=== PATIENT | male | born 1985 | race Caucasian/White ===

== ENCOUNTER → 2020-12-19 09:35 | Outpatient (POV) | payer BC, SELFPAY | PROVIDERS: Visit Provider Dermatology | DX: Z00.00 Encounter for general adult medical examination without abnormal findings (principal) ==

== ENCOUNTER 2024-12-06 16:21 | Outpatient (CLI) | payer BC, SELFPAY ==
--- NOTE | 2024-12-06 16:25 | MR_ITS ---
PROCEDURE INFORMATION: Exam: MR Cervical Spine Without Contrast Exam date and time: 12/06/2024 5:21 PM Age: 39 years old Clinical indication: Radicular pain (radiculopathy); Location of radicular pain not specified; Additional info: RT hand pain/cervical radiculopathy TECHNIQUE: Imaging protocol: Magnetic resonance imaging of the cervical spine without contrast. COMPARISON: No relevant prior studies available. FINDINGS: Bones/joints: Near anatomic alignment. No fracture. No suspicious marrow signal. Spinal cord: No definite signal abnormality visualized. C2-C3: No significant disc bulge or herniation. No severe spinal canal stenosis. No significant neural foraminal narrowing. C3-C4: Patent spinal canal. There is minimal uncovertebral and facet joint osteophyte present with minimal right neural foraminal narrowing. C4-C5: Patent spinal canal. Minimally narrowed right neural foramen. C5-C6: There is subtle diffuse disc bulging present without stenosis of the spinal canal. Patent neural foramina. C6-C7: No significant disc bulge or herniation. No severe spinal canal stenosis. No significant neural foraminal narrowing. C7-T1: No significant disc bulge or herniation. No severe spinal canal stenosis. No significant neural foraminal narrowing. Soft tissues: Unremarkable. Vasculature: Expected flow voids in the vertebral arteries. IMPRESSION: Minimal degenerative changes without significant spinal canal stenosis, as described.
== END 2024-12-06 23:59 | disposition home or self-care (01) ==
LOC: RAD 16:21
PROVIDERS: PCP Family Medicine; Visit Provider Family Medicine
DX: M79.641 Pain in right hand (principal); M54.12 Radiculopathy, cervical region; R94.130 Abnormal response to nerve stimulation, unspecified
CPT/HCPCS: 72141

== ENCOUNTER 2025-01-03 09:08 | Outpatient (POV) | payer BC, SELFPAY ==
--- NOTE | 2025-01-03 09:11 | A.OFFVIS_ITS ---
HPI Data of Consult Patient: new to practice Consult date: 01/03/25 Requesting Physician: Peggy Simms APRN Primary Care Provider: Jluis Fernandes MD Consult Narrative Reason for consult: Arm numbness tingling, neck pain History of present illness: Mr. Venegas is a 39 year old male who presents today as a new patient. He is a referral from Dr. Fernandes's office. Today he rates his pain a 5 out of 10. Patient states that he has had longstanding neck pain that does go into his shoulders and was down primarily the right arm with numbness and tingling however has now progressed to both arms. Patient does state that he has his middle finger on his arm was causing significant pain that just would not get better. He states he has tried Tylenol and ibuprofen along with heat and ice and topicals with minimal changes. Patient states that he is very active and does do regular exercise and stretching on a daily basis and has for longer than 12 weeks. Patient denies any prior back surgery or injection history. Patient is prescribed temazepam from an outside provider. His Vipul has been reviewed and is appropriate. CC: Peggy Simms APRN [facility] Disclaimer: The information contained in this section may have been updated after the patient was seen, as this information can be updated by other users. Medical History Attention deficit disorder (ADD) in adult Family History (Updated 01/03/25 @ 09:28 by Brittney Good RN) Other Unknown family medical history Social History (Updated 01/03/25 @ 09:29 by Brittney Good RN) Smoking Status: Never smoker second hand exposure: No alcohol intake: never substance use type: other details: they do have CBD gummies; the legal ones; it will help him focus counseling given: No current occupational status: employed Travel in the last 8 weeks: None adopted: No caregiver/support person: No foster care: No household members: spouse housing: house lives independently: Yes marital status: number of children: 2 number of grandchildren: 0 education level: high school service: No current occupation: [employer] Hx Recent Travel: No sexually active: Yes caffeine: No physical activity: none working smoke detector in home: Yes fire extinguisher in home: Yes carbon monox detector in home: Yes firearms in home: No do you feel safe at home: Yes victim of physical abuse: No victim of emotional abuse: No victim of sexual abuse: No would you like helpful sources: No Review of Systems Review of Systems Review of systems:: pertinent systems reviewed and negative unless documented below Review of systems (narrative): Review of Systems: General: No recent weight changes, no fever, no sleep disturbances Respiratory: No cough, no shortness of air, no recurring pulmonary infections Cardiovascular/peripheral vascular: No chest pain, no palpitations, no edema, no shortness of breath Gastrointestinal: No new onset incontinence, normal bowel movements reported Genitourinary: No new onset incontinence Musculoskeletal: Neck pain, bilateral arm numbness tingling Psychiatric: [Normal mood/affect] Neurological: [Denies weakness in extremities], [denies balance issues] Meds Home Medications and Allergies Home Medications ?Medication ?Instructions ?Recorded ?Confirmed ?Type No Known Home Medications 01/17/23 01/03/25 History New Prescriptions to Start Prescriptions: Allergies Allergy/AdvReac Type Severity Reaction Status Date / Time No Known Allergies Allergy Verified 12/17/22 13:59 Objective Narrative: Physical Exam: General: Alert and oriented x3, no acute distress, pleasant and cooperative Lungs: Respirations even and unlabored, symmetrical chest expansion Eyes: PERRL Musculoskeletal: Flexion and extension of cervical [spine] somewhat guarded secondary to pain, positive Spurling's test Neurological: Speech clear, no gross sensory deficit Additional findings Additional findings: FINDINGS: Bones/joints: Near anatomic alignment. No fracture. No suspicious marrow signal. Spinal cord: No definite signal abnormality visualized. C2-C3: No significant disc bulge or herniation. No severe spinal canal stenosis. No significant neural foraminal narrowing. C3-C4: Patent spinal canal. There is minimal uncovertebral and facet joint osteophyte present with minimal right neural foraminal narrowing. C4-C5: Patent spinal canal. Minimally narrowed right neural foramen. C5-C6: There is subtle diffuse disc bulging present without stenosis of the spinal canal. Patent neural foramina. C6-C7: No significant disc bulge or herniation. No severe spinal canal stenosis. No significant neural foraminal narrowing. C7-T1: No significant disc bulge or herniation. No severe spinal canal stenosis. No significant neural foraminal narrowing. Soft tissues: Unremarkable. Vasculature: Expected flow voids in the vertebral arteries. IMPRESSION: Minimal degenerative changes without significant spinal canal stenosis, as described. Assessment and Plan *Assessment and plan (1) Degenerative disc disease, cervical: Status: Acute Category: Medical Code(s): M50.30 - Other cervical disc degeneration, unspecified cervical region (2) Cervical spondylosis: Status: Acute Category: Medical Code(s): M47.812 - Spondylosis without myelopathy or radiculopathy, cervical region (3) Cervical radiculopathy: Status: Acute Category: Medical Code(s): M54.12 - Radiculopathy, cervical region Plan Patient is experiencing worsening pain in their neck with radiating tingling and burning sensations into his bilateral upper extremities. Patient did have limited range of motion of his cervical spine with a positive Spurling's test. I did discuss with the patient that I do believe they would benefit from a cervical epidural steroid injection. Risk and benefits were discussed with patient and they would like to proceed forward with this plan of care. Patient has had an EMG test showing evidence of increased insertional activity involving the right biceps, right deltoid and right triceps involving the C5-C6, C6-C7 and 8 dermatome distributions. Patient has tried and failed conservative the rapy including oral medications, heat and ice, topicals, at home stretching exercise for longer than 12 weeks that was physician guided. Patient will be scheduled for a ERNESTO C5-C6 under fluoroscopy. Patient denies any blood thinners. I will also order the patient a compounded cream. Patient has been instructed to contact the clinic with any concerns before the next appointment. Dr. Galdamez has reviewed this note and agrees with this plan of care. This note was dictated using voice recognition software and make contain errors or omissions. All injections are used with Lidocaine, Bupivacaine and Depo Medrol. Occasionally urine drug screen is needed to verify patient's compliance with our office pain contract. This is ordered based off specific treatments related to chronic pain with the potential to abuse certain medications.
[2025-01-03 09:27] VITALS: BP 139/81; PULSE 71; RESP 18; O2SAT 97; BMI 25.1
== END 2025-01-03 23:59 | disposition home or self-care (01) ==
LOC: SC.PAIN 09:09
PROVIDERS: PCP Family Medicine; Visit Provider Nurse Practitioner Family
DX: M50.10 Cervical disc disorder with radiculopathy, unspecified cervical region (principal); M47.22 Other spondylosis with radiculopathy, cervical region
CPT/HCPCS: 99202; G0463

== ENCOUNTER 2025-02-01 10:46 | Day surgery (SDC) | payer BC, SELFPAY ==
[2025-02-01 11:12] VITALS: BP 122/81; PULSE 77; RESP 16; TEMP 37.1; O2SAT 97; BMI 25.7
[2025-02-01 11:15] VITALS: BP 146/78; PULSE 78; RESP 18; O2SAT 96
[2025-02-01] MEDS: DEXAMETHASONE 10MG/ML 1ML VIAL 10 MG (11:15)
[2025-02-01 11:16] VITALS: BP 146/78; PULSE 78; RESP 18; O2SAT 96
[2025-02-01] MEDS: IOPAMIDOL-200 (41%);10ML VIAL 10 ML IV (11:18)
[2025-02-01 11:20] VITALS: BP 125/82; PULSE 72; RESP 16; O2SAT 99
--- NOTE | 2025-02-01 11:22 | P.PCN_ITS ---
Procedure Date: 02/01/25 Time: 11:10 Anesthesiologist:: Eladio Pierre CRNA Complications:: None Pre-procedure Diagnosis:: Degenerative disc cervical spine. Cervical disc bulge C5-6. Cervical radiculopathy. Post-procedure Diagnosis:: Same. Indications for Procedure:: Patient is a very pleasant 39-year-old male who comes our clinic today for a cervical epidural steroid injection. Patient describes cervical neck pain as constant, dull, aching. Patient also reports right arm and hand radicular symptoms. Patient cervical MRI shows slight bulge at C5-6. He rates his pain 5/10. Procedure Details:: Procedure:Cervical epidural steroid injection Informed consent was obtained and the risks and benefits of the procedure were explained to the patient. The patient was taken to the procedure room and noninvasive monitors placed, including noninvasive blood pressure cuff and pulse oximeter. The neck was prepped using Chloraprep as a cleansing solution. The C6- C7 interspace was viewed using fluroscopy. The skin and subcutaneous tissues were anesthetized using lidocaine 1.5% and a 25-gauge needle. After this an 18- gauge Touhy epidural needle was placed into the C6-C7 interspace under fluroscopy guidance and advanced using loss of resistance to air until the epidural space was encountered. After confirmation of needle placement in the epidural space using contrast dye, a solution containing normal saline, 2 mL and Depo-Medrol 80 mg was incrementally injected into the cervical epidural space.~ The patient tolerated the procedure well with no complications. The patient was observed in the Pain Clinic and then discharged home maira rologically intact. Plan and Disposition:: Patient was discharged without incident.
== END 2025-02-01 11:20 | disposition home or self-care (01) ==
PROVIDERS: PCP Family Medicine; Visit Provider Nurse Anesthetist, Certified Registered
DX: M50.30 Other cervical disc degeneration, unspecified cervical region (principal); M54.12 Radiculopathy, cervical region
CPT/HCPCS: 62321; J1100; Q9966

== ENCOUNTER 2025-02-22 10:35 | Outpatient (POV) | payer BC, SELFPAY ==
[2025-02-22 10:52] VITALS: BP 131/73; PULSE 79; RESP 14; O2SAT 98; BMI 25.1
--- NOTE | 2025-02-22 11:16 | EXP.PAIN.SOA ---
[facility] Disclaimer: The information contained in this section may have been updated after the patient was seen, as this information can be updated by other users. Medical History Attention deficit disorder (ADD) in adult Family History Other Unknown family medical history Social History Smoking Status: Never smoker second hand exposure: No alcohol intake: never substance use type: other details: they do have CBD gummies; the legal ones; it will help him focus counseling given: No current occupational status: other Travel in the last 8 weeks?: None adopted: No caregiver/support person: No foster care: No household members: spouse housing: house lives independently: Yes marital status: number of children: 2 number of grandchildren: 0 education level: high school service: No current occupation: [employer] Recent Travel: No sexually active: Yes caffeine: No physical activity: none working smoke detector in home: Yes fire extinguisher in home: Yes carbon monox detector in home: Yes firearms in home: No do you feel safe at home: Yes victim of physical abuse: No victim of emotional abuse: No victim of sexual abuse: No would you like helpful sources: No PM Subjective & Objective Subjective Subjective:: Patient is a pleasant 39-year-old male who presents today for follow-up of cervical epidural steroid injection C6-C7 on 02/01/2025. Today he rates his pain a 5 out of 10. He states he really did not notice a big difference with this injection. He is still having the radicular numbness and tingling that does go primarily down the right arm. He states it is more aggravated when he is doing physical activity with his extremities such as playing the guitar. Patient has continued ibuprofen and Tylenol with no additional changes. He was prescribed the compounded cream however did not really notice much improvement. His Vipul has been reviewed and is appropriate. Review of Systems: General: No recent weight changes, no fever, no sleep disturbances Respiratory: No cough, no shortness of air, no recurring pulmonary infections Cardiovascular/peripheral vascular: No chest pain, no palpitations, no edema, no shortness of breath Gastrointestinal: No new onset incontinence, normal bowel movements reported Genitourinary: No new onset incontinence Musculoskeletal: Right lower arm numbness tingling Psychiatric: [Normal mood/affect] Neurological: [Denies weakness in extremities], [denies balance issues] Pain at rest (0-10 scale): 5 Objective Objective:: Physical Exam: General: Alert and oriented x3, no acute distress, pleasant and cooperative Lungs: Respirations even and unlabored, symmetrical chest expansion Eyes: PERRL Musculoskeletal: Flexion and extension of cervical [spine] somewhat guarded secondary to pain Neurological: Speech clear, no gross sensory deficit Has patient had previous pain injection?: Yes Percent improvement in pain since last injection: Minimal Conservative treatment options previously tried: Home exercise plan Length of treatment: Longer than 12 weeks Meds Home Medications and Allergies Home Medications ?Medication ?Instructions ?Recorded ?Confirmed ?Type No Known Home Medications 01/17/23 02/22/25 History New Prescriptions to Start Prescriptions: Allergies Allergy/AdvReac Type Severity Reaction Status Date / Time No Known Allergies Allergy Verified 12/17/22 13:59 Assessment and Plan *Assessment and plan (1) Cervical radiculopathy: Status: Acute Category: Medical Code(s): M54.12 - Radiculopathy, cervical region (2) Degenerative disc disease, cervical: Status: Acute Category: Medical Code(s): M50.30 - Other cervical disc degeneration, unspecified cervical region Plan Patient still continues to have the numbness and tingling down the right extremity. Patient has already been checked for carpal tunnel with EMG and it was negative. I will send in a 2-week dose of pregabalin 25 mg twice daily. Patient will return to clinic in 2 weeks for reevaluation of symptoms and plan of care. Patient has been instructed to contact the clinic with any concerns before the next appointment. Dr. Galdamez has reviewed this note and agrees with this plan of care. This note was dictated using voice recognition software and make contain errors or omissions. All injections are used with Lidocaine, Bupivacaine and dexamethasone. Occasionally urine drug screen is needed to verify patient's compliance with our office pain contract. This is ordered based off specific treatments related to chronic pain with the potential to abuse certain medications.
== END 2025-02-22 23:59 | disposition home or self-care (01) ==
PROVIDERS: PCP Family Medicine; Visit Provider Nurse Practitioner Family
DX: M50.123 Cervical disc disorder at C6-C7 level with radiculopathy (principal); Z79.1 Long term (current) use of non-steroidal anti-inflammatories (NSAID)
CPT/HCPCS: 99212; G0463

== ENCOUNTER 2025-03-09 08:40 | Outpatient (POV) | payer BC, SELFPAY ==
--- OUTSIDE RECORDS SUMMARY | 2024-10-12 05:45 | XMS_ITS ---
Author Organization [facility] Address [address] [facility] 36 [facility] [address] [place] [phone] Care Team Providers Care Non Destructive Testing Supervisor Name Role Phone Jlius Fernandes Primary Care Provider [phone] Allergies No Known Allergies Results Component Value Reference Range Notes P-Comprehensive Metabolic Pa shanika (CMP) Reviewed date:10/14/2024 11:13:01 AM Interpretation:Normal Performing Lab: Notes/Report: Test performed by [facility] [address] [place] [address] , [address], [place] [address] Erik Santillan MD, Sanding Supervisor CLIA: [id number] Sodium 140 135-145 mmol/L Potassium 4.7 3.5-5.3 [...] Interpretation:Normal Performing Lab: Notes/Report: Test performed by [facility] [address], [place] [address] Erik Santillan MD, Sanding Supervisor IA: [id number] Cholesterol 140 <200 mg/dL Triglycerides 117 <150 [...] Encounter Location Date Provider Diagnosis [facility] [facility] 36 [facility] [address] [place] [phone] 10/12/2024 Jluis Fernandes Well adult exam Z00. [...] * Masoud VENEGASDOB:[birth year] (39 yo M)Acc No.[id number]:10/12/2024 Progress Notes Patient: Masoud DOWD Provider: Rachele Fernandes M.D. :1985 A ge:38 Y S ex:Male Date:10/12/2024 Address:[address] [place] [address] [id number] Subjective: * Chief Complaints: * 1 . [...] G eneral Examination: General Appearance: N AD. HEENT: u nremarkable. Oral cavity: n o lesions, mucosa moist and WNL, no erythema. Neck: s upple, no lymphadenopathy. Heart: R SR. Lungs: c lear to auscultation. Neurologic Exam: Tinel's negative, Phalen's positive at right wrist. Skin: n ormal, no rash. Peripheral pulses: n ormal (2+) bilaterally. Extremities: n o leg edema, thenar eminence muscle [...] T riglycerides 117 <150 - mg/dL * Giovana Reneira 10/14/2024 11:12:4 1 AM > Pt informed 2.?Pain in right hand?Imaging: Nerve Conduction Study (Performed Date - 10/19/2024)?possible cervical radiculopathy* Jenna Dawson 10/12/2024 10:48 :42 AM > faxed to [facility] NeurologyWhNichelle valadez 10/20/2024 4:29:17 PM > , See phone encounter * Follow Up: v ia phone to report test results * Billing Information: * Visit Code: 10418 Preventive Care New Pt Age 18-39. * Procedure Codes: * Electronic signature of Rose Fernandes MD on 03/09/2025 at 08:42 AM EDT Sign off status: Pending * Provider: Rachele Fernandes M.D. Date: 0 10/12/2024 Generated for Printi ng/Fadouglasg/eTransmitting on: 0 03/09/2025 08:42 AM EDT History and Physical Notes * HPI [...]
--- OUTSIDE RECORDS SUMMARY | 2025-03-09 08:43 | XMS_ITS | Data Portability ---
Author Organization [facility] - [facility] Address [address] [facility] [address] [place] [address] Care Team Providers Care International Accountant Name Role Phone JORDY CHERY Urologist Assessment Encounter Date Assessment Date Assessment LastModified by Organization Details LastModified Time 11/11/2018 11/11/2018 32-year-old male who elects for vasectomy. Approximately 20 minutes was spent with the patient counseling him about vasectomy. Over 90% of the visit was for counseling. He was counseled that a vasectomy should be considered a permanent procedure, that a reversal procedure is possible but the results cannot be guaranteed. He was also counseled that there is a slight risk of a vas reconnecting and that he would need to provide 2 negative semen samples before discontinuing other methods of control. The details of the procedure including potential intraoperative risks and postoperative expectations and care were discussed. His questions were answered. He watched the video tape. He would like to proceed. He will be given a Valium to take prior to the procedure and will need a team driver to and from the procedure. Plan: Schedule vasectomy smonnig Not available 11/11/2018 16:21:57 Plan of Treatment Reminders Order Date Submit Date Provider Last Modified By Organization Details Last Modified Time Details Appointments None recorded. Lab None recorded. Referral None recorded. Procedures None recorded. Surgeries None recorded. Imaging None recorded. Medication Orders Bactrim DS 800 mg-160 mg tablet 2018 019 INTERFACE [facility] #[id number], [address] [address] [place], [id number], 9 16:22:25 Valium 10 mg tablet 2018 019 INTERFACE [facility] #[id number], [address] [facility] [address] [place], [phone], 9 16:22:28 [place] 5 mg-325 mg tablet 2018 019 INTERFACE [id number], [address] [facility] [address] [place] [place], [phone], 9 16:22:28 Patient TargetsNo targets recorded. Patient InstructionsNo instructions recorded. Reason for Referral None Reported. Results Created Date Observation Date Name Description Value Unit Range Abnormal Flag Note LastModifiedBy Organization Detail LastModifiedTime 06/22/20 19 06/22/2019 semen endy sis (post vasec lizzie) semen volume 3.6 mL 2.0-5. 0 normal Not Available [facility] [address] [place] [address], [address], 06/22/2019 15:03:47 06/22/20 19 06/22/2019 semen endy sis (post vasec lizzie) semen exam,post-va s NO SPERM SEEN no sperm seen normal Not Available [facility] [address] [place], [address], 06/22/2019 15:03:47 08/09/20 19 08/09/2019 semen endy sis (post vasec lizzie) semen volume 4.6 mL 2.0-5. 0 normal Not Available [facility] [address] [place], [address], 08/09/2019 12:16:35 08/09/20 19 08/09/2019 semen endy sis (post vasec lizzie) semen exam,post-va s NO SPERM SEEN no sperm seen normal Not Available [facility] [address] [place] [address], [phone], 08/09/2019 12:16:35 Result Notes None recorded. Problems No Known Problems Procedures Surgical History Date Name Laterality Status Provider Name and Address Organization Details Recorded Time 12/18/2018 Vasectomy completed JORDY CHERY MD [address] [place], [address], [facility] 12/18/2018 15:45:51 12/18/2018 Vasectomy completed JORDY CHERY MD [address] [place], [address], [facility] 12/18/2018 15:21:13 Imaging Results None recorded. Procedure Notes None recorded. Medical Equipment None Reported. Allergies No known drug allergies Medications Name Sig Start Date Stop Date Status Note LastModified by Organization Details LastModified Time Valium 10 mg tablet Take 1 tablet(s) one hour before the vasectomy active Not Available Not Available Not Avai lable [place] 5 mg-325 mg tablet Take 1 tablet every 6 hours by oral route as needed. active Not Available Not Available Not Avai lable Bactrim DS 800 mg-160 mg tablet Take 1 tablet(s) EVERY 12 HOURS by oral route. Start the morning of the vasectomy. active Not Available Not Available Not Avai lable Vitals Date Recorded Body height Body mass index (BMI) Body weight Provider Name and Address Organization Details Last Updated DateTime 11/11/2018 180.34 cm 26.5 kg/m2 41836.55 g Lisa Marilin [facility] 11/11/2018 15:30:07 Date Recorded Body height Body mass index (BMI) Body weight Provider Name and Address Organization Details Last Updated DateTime 12/18/2018 180.34 cm 26.5 kg/m2 15494.55 g Jud Pereira [facility] 12/18/2018 15:12:40 Date Recorded Body height Body mass index (BMI) Body weight Heart rate Systolic blood pressure Diastolic blood pressure Provider Name and Address Organization Details Last Updated DateTime 8 180.34 cm 26.5 kg/m2 98924.5 5 g 84 /min 126 mm[Hg] 75 mm[Hg] Jo Ann Wild [facility] 8 17:04:10 Social History Question Answer Notes LastModified by Organizat ion Details LastModified Time Tobacco Smoking Status Never [facility]oker [facility] 08/26/2018 17:07:08 Marital Status Informatio n not available 08/26/2018 What Was The Date Of Your Most Recent Tobacco Screening? 12/18/2018 Information n ot available 11/09/2019 Sex: Unknown Functional Status Question Answer Note LastModified by Organizat ion Details LastModified Time What is your level of alcohol consumption? 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 Family History Relationship Description Onset Age of this Age Resolved Age Notes LastModified by Organization Details LastModified Time Father No current problems or disability Not available 08/26 17:06:56 Mother No current problems or disability Not available 08/26 17:06:56 Medical History No medical history recorded. Past Encounters Encounter ID Performer Location Encounter Start Date Encounter Closed Date Diagnosis/Indication Diagnosis SNOMED-CT Code Diagnosis ICD10 Code Diagnosis Note [id number] MASOUD BALDERRAMA MD [facility] [address] [place] [address] 08/26/2018 14:52:01 08/26/2018 17:05:56 Male sterilization 592758536 Z30.2 Plan as above. [id number] JORDY CHERY MD [facility] [address] [place] [address] 11/11/2018 15:19:50 11/12/2018 07:24:05 Contraception care management 259524832 Z30.09 [id number] JORDY CHERY MD [facility] [address] [place] [address] 12/18/2018 15:00:51 12/18/2018 15:53:06 Male sterilization 723182933 Z30.2 Health Concerns Section Related Observation LastModified by Organization Detai ls LastModified Time None Recorded Concern Status LastModified by Organization Details LastModified Time None Recorded Advance Directives Directive None Recorded Payers Insurance Date Sequence Insurance Name Policy Number Policy [place] Covered Member ID [place] Member ID Guarantor Name 08/11/2019 1 MOLINA-LUIS ALBERTO (PPO) [id number] Kimberly dumont [id number] Masoud Shannon Rubi 01/30/2021 PAYMENT PLAN Masoud Venegas Notes Date Note Type Note Provider Name and Address Organization Details Recorded Time 08/26/2018 text/html Patient is here for consultation regarding vasectomy. He is a father of 2 request permanent sterilization. He and his have considered this for sometime. He has no other urologic complaints. We discussed vasectomy in detail including risks of bleeding infection and recannulization. We discussed vasectomy under local anesthesia as well as sedation. He would like to proceed under local anesthesia. He has reviewed the literature. He has signed appropriate consent. He understands that he will need additional contraception until cleared by our office. MASOUD BALDERRAMA MD [address] [place] [address] [place], [address], [facility] 08/27/2018 22:39:43 11/11/2018 text/html 32-year-old liat manley male self-referred for possible vasectomy. He is . They have 2 children. He does not wish to have further children. He has no complaints. He also saw Dr. Balderrama for a vasectomy consultation but the schedule did not work out. He works in security. JORDY CHERY MD [address] [place] [address] [place], [address], [facility] 11/11/2018 16:23:04
--- OUTSIDE RECORDS SUMMARY | 2025-03-09 08:43 | XMS_ITS | Patient Health Record ---
[facility] [address] [facility] [address] [place] [id number] Care Team Providers Care Rocket Motor Mechanic Name Role Phone Jluis Fernandes Primary Care Provider [phone] Allergies No Known Allergies Results Component Value Reference Range Notes P-Comprehensive Metabolic Pa shanika (CMP) Reviewed date:10/14/2024 11:13:01 AM Interpretation:Normal Performing Lab: Notes/Report: Test performed by [facility] [address] [place], [place] [address] [address] , [address], [place] [address] Erik Santillan MD, Clinical Nurse Specialist CLIA: [id number] Sodium 140 135-145 mmol/L Potassium 4.7 3.5-5.3 [...] Interpretation:Normal Performing Lab: Notes/Report: Test performed by [facility] [address] [facility] , [address], [place] [address] Erik Santillan MD, Clinical Nurse Specialist CLIA: [id number] Cholesterol 140 <200 mg/dL Triglycerides 117 <150 [...] radiculopathy Performing Lab: Notes/Report: possible cervical radiculopathy STEVEN Reviewed date:10/12/2024 08:35:32 AM Interpretation: Performing Lab: Notes/Report: MRI : Spine, Cervical, witho ut contrast Reviewed date:12/13/2024 09:34:40 AM Interpretation:minimal degenerative changes Performing Lab: Notes/Report: minimal degenerative changes Reason For Referral Diagnosis 1 Cervical radiculopat hy (M54.12) Diagnosis 2 DDD (degenerative di sc disease), cervical (M50.30) [facility] Referring Provider First Name Jluis Referring Provider Last Name Dena Referring Provider [facility] Provider Jamel Galdamez Referred Provider Specialty Pain Managem ent General Notes Jenna Dawson 2024 08:53:41 AM > faxed to [facility] Pain Management Referral Priority Routine Problems Problem Type SNOMED Code ICD Code Onset Dates Problem Status W/U Status Risk Notes Problem 91225760 Cervical radiculopathy (M54.12) Active confirmed Problem 23603279 DDD (degenerativ e disc disease), cervical (M50.30) Active confirmed Vital Signs Heart Rate 83 /min 10/12/2024 Blood pressure diastolic 70 mm Hg 10/12/2024 Height 71 in 10/12/2024 Blood pressure systolic 120 mm Hg 10/12/2024 Weight 185 lbs 10/12/2024 BMI 25.80 kg/m2 10/12/2024 Encounters Encounter Location Date Provider Diagnosis [facility] [address] [facility] [address] [place], [place] [id number] 10/12/2024 Jluis Redfox Well adult exam Z00. 00 and Pain in right hand M79.641 [facility] [address] [facility] [address] [place], [place] [id number] 10/20/2024 Jluis Redfox Pain in right hand M79.641 ; Cervical radiculopathy M54.12 and Abnormal nerve conduction studies R94.130 [facility] [address] [facility] [address] [facility] [address] [place], [place] [id number] 11/15/2024 Jluis Redfox [facility] [address] [facility] [address] [place], [place] [id number] 12/13/2024 Jluis Redfox Cervical radiculopat hy M54.12 and DDD (degenerative disc disease), cervical M50.30 Assessments Encounter Date Diagnosis (ICD Code) Assessment Notes Treatment Notes Treatment Clinical Notes Section Notes 10/12/2024 Pain in right hand (ICD-10 - M79.641) 10/12/2024 Well adult exam (ICD-10 - Z00.00) 10/20/2024 Cervical radiculopathy (ICD-10 - M54.12) 10/20/2024 Pain in right hand (ICD-10 - M79.641) 12/13/2024 Cervical radiculopathy (ICD-10 - M54.12) 12/13/2024 DDD (degenerative disc disease), cervical (ICD-10 - M50.30) 10/20/2024 Abnormal nerve conduction studies (ICD-10 - R94.130) Plan Of Treatment No Information Insurance Providers Payer Name Payer Address Payer Phone Subscriber Number Group Number Insured Name Patient Relationship to Insured Coverage Start Date Coverage End Date BETTIE JONES [facility] [address] [place] [address] [id number] Masoud Venegas Self - patient is the insured Medical (General) History Medical History History ICD Code Post Traumatic Stress Disorder Surgical History Surgery Date(Month/Year) Hospitalization History Reason Date(Month/Year)
--- NOTE | 2025-03-09 09:02 | EXP.PAIN.SOA ---
[facility] Disclaimer: The information contained in this section may have been updated after the patient was seen, as this information can be updated by other users. Medical History Attention deficit disorder (ADD) in adult Family History Other Unknown family medical history Social History Smoking Status: Never smoker second hand exposure: No alcohol intake: never substance use type: other details: they do have CBD gummies; the legal ones; it will help him focus counseling given: No current occupational status: other Travel in the last 8 weeks?: None adopted: No caregiver/support person: No foster care: No household members: spouse housing: house lives independently: Yes marital status: number of children: 2 number of grandchildren: 0 education level: high school service: No current occupation: [employer] Recent Travel: No sexually active: Yes caffeine: No physical activity: none working smoke detector in home: Yes fire extinguisher in home: Yes carbon monox detector in home: Yes firearms in home: No do you feel safe at home: Yes victim of physical abuse: No victim of emotional abuse: No victim of sexual abuse: No would you like helpful sources: No PM Subjective & Objective Subjective Subjective:: Patient is a pleasant 39-year-old male who presents today for 2-week follow-up. Patient had at his last visit been given a prescription of Lyrica 25 mg twice daily. He states he did not necessarily notice any improvement with the numbness and tingling that goes into the right extremity but denies any side effects. Patient denies any new changes. He rates his pain today at a 5 out of 10. Patient denies any heart or kidney issues. His Vipul has been reviewed and is appropriate. Review of Systems: General: No recent weight changes, no fever, no sleep disturbances Respiratory: No cough, no shortness of air, no recurring pulmonary infections Cardiovascular/peripheral vascular: No chest pain, no palpitations, no edema, no shortness of breath Gastrointestinal: No new onset incontinence, normal bowel movements reported Genitourinary: No new onset incontinence Musculoskeletal: Neck pain, right arm numbness tingling Psychiatric: [Normal mood/affect] Neurological: [Denies weakness in extremities], [denies balance issues] Pain at rest (0-10 scale): 5 Objective Objective:: Physical Exam: General: Alert and oriented x3, no acute distress, pleasant and cooperative Lungs: Respirations even and unlabored, symmetrical chest expansion Eyes: PERRL Musculoskeletal: Flexion and extension of cervical [spine] somewhat guarded secondary to pain Neurological: Speech clear, no gross sensory deficit Has patient had previous pain injection?: No Conservative treatment options previously tried: Home exercise plan Length of treatment: Longer than 12 weeks Meds Home Medications and Allergies Home Medications ?Medication ?Instructions ?Recorded ?Confirmed ?Type No Known Home Medications 01/17/23 02/22/25 History pregabalin 25 mg capsule 25 mg PO BID #28 caps 02/22/25 Rx New Prescriptions to Start Prescriptions: Allergies Allergy/AdvReac Type Severity Reaction Status Date / Time No Known Allergies Allergy Verified 12/17/22 13:59 Assessment and Plan *Assessment and plan (1) Cervical radiculopathy: Status: Acute Category: Medical Code(s): M54.12 - Radiculopathy, cervical region (2) Cervical spondylosis: Status: Acute Category: Medical Code(s): M47.812 - Spondylosis without myelopathy or radiculopathy, cervical region (3) Degenerative disc disease, cervical: Status: Acute Category: Medical Code(s): M50.30 - Other cervical disc degeneration, unspecified cervical region Plan I will send in a 2-week dose of diclofenac 75 mg twice daily. Patient was counseled to discontinue all other NSAIDs while taking this medication and to take it with food to minimize GI upset. Patient will also be changed on his pregabalin to 50 mg at bedtime. Patient will return to clinic in 2 weeks for reevaluation of symptoms and plan of care. \ Patient has been instructed to contact the clinic with any concerns before the next appointment. Dr. Galdamez has reviewed this note and agrees with this plan of care. This note was dictated using voice recognition software and make contain errors or omissions. All injections are used with Lidocaine, Bupivacaine and dexamethasone. Occasionally urine drug screen is needed to verify patient's compliance with our office pain contract. This is ordered based off specific treatments related to chronic pain with the potential to abuse certain medications.
[2025-03-09 09:27] VITALS: BP 128/71; PULSE 84; RESP 18; O2SAT 97; BMI 25.1
== END 2025-03-09 23:59 | disposition home or self-care (01) ==
PROVIDERS: PCP Family Medicine; Visit Provider Nurse Practitioner Family
DX: M47.22 Other spondylosis with radiculopathy, cervical region (principal); Z79.1 Long term (current) use of non-steroidal anti-inflammatories (NSAID); Z79.899 Other long term (current) drug therapy
CPT/HCPCS: 99212; G0463

== ENCOUNTER 2025-03-23 10:20 | Outpatient (POV) | payer BC, SELFPAY ==
--- OUTSIDE RECORDS SUMMARY | 2024-10-12 05:45 | XMS_ITS ---
[facility] Address [address] [facility] [address] [place] [phone] Care Team Providers Care Certified Surgical Assistant Name Role Phone Jluis Fernandes Primary Care Provider Allergies No Known Allergies Results Component Value Reference Range Notes P-Comprehensive Metabolic Pa shanika (CMP) Reviewed date:10/14/2024 11:13:01 AM Interpretation:Normal Performing Lab: Notes/Report: Test performed by [facility] [address] [place] [address] , [address], [place] [address] Erik Santillan MD, Anesthesia Attending CLIA: [id number] Sodium 140 135-145 mmol/L Potassium 4.7 3.5-5.3 [...] Interpretation:Normal Performing Lab: Notes/Report: Test performed by [facility] [address], [place] [address] Erik Santillan MD, Anesthesia Attending IA: [id number] Cholesterol 140 <200 mg/dL Triglycerides 117 <150 [...] Encounter Location Date Provider Diagnosis [facility]10 [facility] 36 [facility] [address] [place] [phone] 10/12/2024 Jluis Fernandes Well adult exam Z00. [...] * Masoud VENEGASDOB:[birth year] (39 yo M)Acc No.[id number]:10/12/2024 Progress Notes Patient: Masoud DOWD Provider: Rachele Fernandes M.D. :1985 A ge:38 Y S ex:Male Date:10/12/2024 Address:[address] [place] [address] [id number] Subjective: * Chief Complaints: * 1 . [...] 10/12/2024 10:48 :42 AM > faxed to [facility] NeurologyNichelle Eason 10/20/2024 4:29:17 PM > , See phone encounter * Follow Up: v ia phone to report test results * Images: Billing Information: * Visit Code: 12402 Preventive Care New Pt Age 18-39. * Procedure Codes: * Electronic signature of Rose Fernandes MD on 03/23/2025 at 10:29 AM EDT Sign off status: Pending * Provider: Rachele Fernandes M.D. Date: 0 10/12/2024 Generated for Tamii juan/Marianna/eTransmitting on: 0 03/23/2025 10:29 AM EDT History and Physical Notes * [...]
--- OUTSIDE RECORDS SUMMARY | 2025-03-23 10:30 | XMS_ITS | Patient Health Record ---
[facility] Address [address] [facility] [address] [place] [id number] Care Team Providers Care Rn Physician Office Name Role Phone Jluis Fernandes Primary Care Provider [phone] Allergies No Known Allergies Results Component Value Reference Range Notes P-Comprehensive Metabolic Pa shanika (CMP) Reviewed date:10/14/2024 11:13:01 AM Interpretation:Normal Performing Lab: Notes/Report: Test performed by [facility] [address] [place], [place] [address] [facility] [place] , [address], [place] [address] Erik Santillan MD, Manufactured Buildings Repairer CLIA: [id number] Sodium 140 135-145 mmol/L Potassium 4.7 3.5-5.3 [...] Interpretation:Normal Performing Lab: Notes/Report: Test performed by [facility] [address] [facility] , [address], [place] [address] Erik Santillan MD, Manufactured Buildings Repairer CLIA: [id number] Cholesterol 140 <200 mg/dL Triglycerides 117 <150 [...] di sc disease), cervical (M50.30) [facility] Referring Provider First Name Jluis Referring Provider Last Name Dena Referring Provider Speciality Family [facility] ctice Referred Provider Jamel Galdamez Referred Provider Specialty Pain Managem ent General Notes Jenna Dawson 2024 08:53:41 AM > faxed to [facility] Pain Management Referral Priority Routine Problems Problem Type SNOMED Code ICD Code Onset Dates Problem Status W/U Status Risk Notes Problem Cervical radiculopathy (94169237) Cervical radiculopathy (M54.12) Active confirmed Problem Cervical disc disorder (396530388) DDD (degenerative disc disease), cervical (M50.30) Active confirmed Vital Signs Heart Rate 83 /min 10/12/2024 Blood pressure diastolic 70 mm Hg 10/12/2024 Height 71 in 10/12/2024 Blood pressure systolic 120 mm Hg 10/12/2024 Weight 185 lbs 10/12/2024 BMI 25.80 kg/m2 10/12/2024 Encounters Encounter Location Date Provider Diagnosis [facility] [address] [facility] [address] [place] [id number] 10/12/2024 Jluis [facility] Well adult exam Z00. 00 and [facility] in [facility] M79.641 [facility] [address] [place] [id number] 10/20/2024 Jluis [place] Pain in right hand M79.641 ; Cervical radiculopathy M54.12 and Abnormal nerve conduction studies R94.130 [facility] [address] [place], [place] [id number] 11/15/2024 Jluis [place] [facility] [address] [facility] [address] [place], [place] [id number] 12/13/2024 Jluis [place] Cervical radiculopat hy M54.12 and DDD (degenerative [...] Coverage Start Date Coverage End Date [facility] [address] [place] [address] [id number] 003 Masoud Venegas Self - patient is the insured Medical (General) History Medical History History ICD Code Post Traumatic Stress Disorder Surgical History Surgery Date(Month/Year) Hospitalization History Reason Date(Month/Year)
--- NOTE | 2025-03-23 10:38 | A.OFFVIS_ITS ---
[facility] Disclaimer: The information contained in this section may have been updated after the patient was seen, as this information can be updated by other users. Medical History Attention deficit disorder (ADD) in adult Family History Other Unknown family medical history Social History Smoking Status: Never smoker second hand exposure: No alcohol intake: never substance use type: other details: they do have CBD gummies; the legal ones; it will help him focus counseling given: No current occupational status: other Travel in the last 8 weeks?: None adopted: No caregiver/support person: No foster care: No household members: spouse housing: house lives independently: Yes marital status: number of children: 2 number of grandchildren: 0 education level: high school service: No current occupation: [employer] Recent Travel: No sexually active: Yes caffeine: No physical activity: none working smoke detector in home: Yes fire extinguisher in home: Yes carbon monox detector in home: Yes firearms in home: No do you feel safe at home: Yes victim of physical abuse: No victim of emotional abuse: No victim of sexual abuse: No would you like helpful sources: No PM Subjective & Objective Subjective Subjective:: Patient is a pleasant 39-year-old male who presents today for follow-up. Today he rates his pain a 6 out of 10. He does state that is more related to his hands and wrist with the numbness and tingling. He does feel like over the last few weeks that she is starting to increase. Patient does state that he really did not notice any improvement with the diclofenac. He states that the pregabalin increased did seem to help however he still has more numbness and tingling primarily in the day that really affects his thumb and middle finger more prominently. He denies any other changes. His Vipul has been reviewed and is appropriate. Review of Systems: General: No recent weight changes, no fever, no sleep disturbances Respiratory: No cough, no shortness of air, no recurring pulmonary infections Cardiovascular/peripheral vascular: No chest pain, no palpitations, no edema, no shortness of breath Gastrointestinal: No new onset incontinence, normal bowel movements reported Genitourinary: No new onset incontinence Musculoskeletal: Bilateral hand numbness tingling Psychiatric: [Normal mood/affect] Neurological: [Denies weakness in extremities], [denies balance issues] Pain at rest (0-10 scale): 6 Objective Objective:: Physical Exam: General: Alert and oriented x3, no acute distress, pleasant and cooperative Lungs: Respirations even and unlabored, symmetrical chest expansion Eyes: PERRL Musculoskeletal: Flexion and extension of cervical [spine] somewhat guarded secondary to pain, [antalgic gait noted] Neurological: Speech clear, no gross sensory deficit Has patient had previous pain injection?: No Conservative treatment options previously tried: Home exercise plan Length of treatment: Longer than 12 weeks Meds Home Medications and Allergies Home Medications ?Medication ?Instructions ?Recorded ?Confirmed ?Type pregabalin 25 mg capsule 25 mg PO BID #28 caps 03/09/25 Rx diclofenac sodium 75 mg 75 mg PO BID #28 tabs Rx tablet,delayed release pregabalin 50 mg capsule 50 mg PO HS #14 caps 5 Rx New Prescriptions to Start Prescriptions: Allergies Allergy/AdvReac Type Severity Reaction Status Date / Time No Known Allergies Allergy Verified 12/17/22 13:59 Assessment and Plan *Assessment and plan (1) Degenerative disc disease, cervical: Status: Acute Category: Medical Code(s): M50.30 - Other cervical disc degeneration, unspecified cervical region (2) Cervical spondylosis: Status: Acute Category: Medical Code(s): M47.812 - Spondylosis without myelopathy or radiculopathy, cervical region (3) Cervical radiculopathy: Status: Acute Category: Medical Code(s): M54.12 - Radiculopathy, cervical region Plan I did discuss with the patient due to his worsening symptoms I do think it would still be an official to try repeat cervical epidural in future. We will follow- up with this coming up. We did discuss him trying the Lyrica during the day. I will change the pregabalin to 50 mg twice a day. Patient was counseled that he can splits 1 of these tablets in half initially to see how he does in the morning. Patient agrees with this plan of care. Patient will return to clinic in 1 month for reevaluation of symptoms and plan of care. Patient has been instructed to contact the clinic with any concerns before the next appointment. Dr. Galdamez has reviewed this note and agrees with this plan of care. This note was dictated using voice recognition software and make contain errors or omissions. All injections are used with Lidocaine, Bupivacaine and dexamethasone. Occasionally urine drug screen is needed to verify patient's compliance with our office pain contract. This is ordered based off specific treatments related to chronic pain with the potential to abuse certain medications.
[2025-03-23 13:29] VITALS: BP 135/81; PULSE 86; RESP 14; O2SAT 99; BMI 25.1
== END 2025-03-23 23:59 | disposition home or self-care (01) ==
PROVIDERS: PCP Family Medicine; Visit Provider Nurse Practitioner Family
DX: M50.10 Cervical disc disorder with radiculopathy, unspecified cervical region (principal); M47.812 Spondylosis without myelopathy or radiculopathy, cervical region; Z79.899 Other long term (current) drug therapy
CPT/HCPCS: 99212; G0463

== ENCOUNTER 2025-04-25 14:22 | Outpatient (POV) | payer BC, SELFPAY ==
--- OUTSIDE RECORDS SUMMARY | 2024-10-12 05:45 | XMS_ITS ---
Author Organization [facility] Address [address] [facility] [address] [place] [id number] Care Team Providers Care Camper Assembler Name Role Phone Jluis Fernandes Primary Care Provider Allergies No Known Allergies Results Component Value Reference Range Notes P-Comprehensive Metabolic Pa shanika (CMP) Reviewed date:10/14/2024 11:13:01 AM Interpretation:Normal Performing Lab: Notes/Report: Test performed by [facility] [address] [place] [address] , [address], [place] [address] Erik Santillan MD, Ticket Dispatcher CLIA: [id number] Sodium 140 135-145 mmol/L Potassium 4.7 3.5-5.3 mmol/L Chloride 104 97-108 mmol/L CO2 29 22-32 mmol/L Glucose 89 65-99 mg/dL BUN 13 6-20 mg/dL Creatinine 0.91 0.70-1.30 mg/dL Calcium 9.4 8.6-10.4 mg/dL eGFR by Creatinine 111 >59 mL/min/1.73m2 Protein 7.5 6.0-8.3 g/dL Albumin 4.6 3.5-5.3 g/dL Alkaline Phosphatase 83 40-129 IU/L ALT (SGPT) 14 <5-55 IU/L AST (SGOT) 17 <5-46 IU/L Bilirubin, Total 0.9 <0.2-1.2 mg/dL A/G Ratio 1.6 1.1-2.5 P-Lipid Panel Reviewed date:10/14/2024 11:13:01 AM Interpretation:Normal Performing Lab: Notes/Report: Test performed by [facility] [address], [place] [address] Erik Santillan MD, Ticket Dispatcher IA: [id number] Cholesterol 140 <200 mg/dL Triglycerides 117 <150 mg/dL HDL Cholesterol 42 >39 mg/dL Cholesterol / HDL Ratio 3.33 0.00-4.99 Ratio Non-HDL Cholesterol 98 <130 mg/dL LDL Cholesterol (Calculation) 75 <130 mg/dL LDL Cholesterol Levels* Less than 100 mg/dL Optimal 100 to 129 mg/dL Near Optimal/ Above Optimal 130 to 159 mg/dL Borderline High 160 to 189 mg/dL High 190 mg/dL and above Very High * Categories as recommended by the 2004 ATPIII guidelines LDL/HDL Ratio 1.8 <3.3 Ratio LDL Cholesterol Patient History Test Date: 10/12/2024 LDL Results: 75 Units: mg/dL % Change: - Nerve Conduction Study Reviewed date:10/20/2024 04:29:22 PM Interpretation:possible cervical radiculopathy Performing Lab: Notes/Report: possible cervical radiculopathy REASON FOR VISIT BIOMETRIC SCREENING Vital Signs Blood pressure systolic 120 mm Hg 10/12/19 25 Blood pressure diastolic 70 mm Hg 025 Heart Rate 83 /min 10/12/2024 Height 71 in 10/12/2024 Weight 185 lbs 10/12/2024 BMI 25.80 kg/m2 10/12/2024 Encounters Encounter Location Date Provider Diagnosis [facility] [facility] 36 [facility] [address] [place] [id number] 10/12/2024 Jluis Fernandes Well adult exam Z00. 00 and Pain in right hand M79.641 Assessments Encounter Date Diagnosis (ICD Code) Assessment Notes Treatment Notes Treatment Clinical Notes Section Notes 10/12/2024 Well adult exam (ICD-10 - Z00.00) 10/12/2024 Pain in right hand (ICD-10 - M79.641) Plan Of Treatment Next Appt Details Follow Up: via phone to repo rt test results, Reason: Progress Notes * Masoud VENEGASDOB:[birth year] (39 yo M)Acc No.[id number]:10/12/2024 Progress Notes Patient: Masoud DOWD Provider: Rachele Fernandes M.D. :1985 A ge:38 Y S ex:Male Date:10/12/2024 Address:[address] [place] [address] Robert [id number] Subjective: * Chief Complaints: * 1 . BIOMETRIC SCREENING. * HPI: H PI: 38 year old male presents with c/o Patient is here today for?Pt here to establish care, previously seen by Dr. Daniel. Pt states he has not seen PCP in a while . Pt here for Biometric screening, pt is fasting today. * ROS: D ERMATOLOGY: no R tasha. n o H jerome. G ASTROENTEROLOGY: no N ausea. n o V omiting. M USCULOSKELETAL: Positive for p ain in right wrist/hand, thumb, index and middle finger. Patient thinks he has carpal tunnel syndrome, requests testing. U ROLOGY: no D ifficulty urinating. n o B lood in urine. * Medical History: P ost Traumatic Stress Disorder. * Surgical History: D enies Past Surgical History. * Hospitalization/Major Diagno stic Procedure: D enies Past Hospitalization. * Family History: F ather: , diagnosed with Stroke. M other: alive. 2 brother(s) , 2 sister(s) . 1 son(s) , 1 daughter(s) . . Pt's father in 2005Pt unsure of family hx. * Social History: C URRENT TOBACCO USE: No . C affeine: no. Marital Status: . Alcohol: no. * Medications: D iscontinued Tylenol Extra Strength 500 MG Tablet 2 tab(s) orally Q6H , Discontinued Mucinex D 60-600 MG Tablet Extended Release 12 Hour 1 tab(s) orally BID , Discontinued Mucinex DM 30-600 MG Tablet Extended Release 12 Hour 1 tab(s) orally Q12H , Medication List reviewed and reconciled with the patient * Allergies: N .K.D.A. Objective: * Vitals: W t:185, Temp:98.0, BP:120/70, HR:83, Nurse:susi, Ht:71, BMI:25.80. * Examination: G eneral Examination: General Appearance: N AD. H EENT: u nremarkable.?Oral cavity: n o lesions, mucosa moist and WNL, no erythema. N eduardo: s upple, no lymphadenopathy. H eart: R SR. L ungs: c lear to auscultation. N eurologic Exam: Tinel's negative, Phalen's positive at right wrist. S kin: n ormal, no rash. P eripheral pulses: n ormal (2+) bilaterally. E xtremities: n o leg edema, thenar eminence muscle wasting noted on right palm. Assessment: * Assessment: 1. W ell adult exam - Z00.00 (Primary) 2 . P ain in right hand - M79.641? Plan: * Treatment: Value Reference Range A /G Ratio 1.6 1.1-2.5 - * A lbumin 4.6 3.5-5.3 - g/dL * A lkaline Phosphatase 83 40-129 - IU/L * A LT (SGPT) 14 <5-55 - IU/L * A ST (SGOT) 17 <5-46 - IU/L * B ilirubin, Total 0.9 <0.2-1.2 - mg/dL * B UN 13 6-20 - mg/dL * C alcium 9.4 8.6-10.4 - mg/dL * C hloride 104 97-108 - mmol/L * C O2 29 22-32 - mmol/L * C reatinine 0.91 0.70-1.30 - mg/dL * G lucose 89 65-99 - mg/dL * P otassium 4.7 3.5-5.3 - mmol/L * S odium 140 135-145 - mmol/L * P rotein 7.5 6.0-8.3 - g/dL * e GFR by Creatinine 111 >59 - mL/min/1.73m2 * Giovana Reneira 10/14/2024 11:12:4 1 AM > Pt informed ?LAB: P-Lipid Panel (Collection Date & Time - 10/12/2024 09:29 AM)?Normal* Value Reference Range C holesterol / HDL Ratio 3.33 0.00-4.99 - Ratio * C holesterol 140 <200 - mg/dL * H DL Cholesterol 42 >39 - mg/dL * L DL Cholesterol (Calculation) 75 <130 - mg/d L * L DL/HDL Ratio 1.8 <3.3 - Ratio * N on-HDL Cholesterol 98 <130 - mg/dL * T riglycerides 117 <150 - mg/dL * Raquel Rene 10/14/2024 11:12:4 1 AM > Pt informed 2.?Pain in right hand?Imaging: Nerve Conduction Study (Performed Date - 10/19/2024)?possible cervical radiculopathy* Jenna Dawson 10/12/2024 10:48 :42 AM > [facility] NeurologyNichelle Eason 10/20/2024 4:29:17 PM > , See phone encounter * Follow Up: v ia phone to report test results * Images: Billing Information: * Visit Code: 65219 Preventive Care New Pt Age 18-39. * Procedure Codes: * Electronic signature of Rose Fernandes MD on 04/25/2025 at 02:24 PM EDT Sign off status: Pending * Provider: Rachele Fernandes M.D. Date: 0 10/12/2024 Generated for Tamii juan/Marianna/eTransmitting on: 0 04/25/2025 02:24 PM EDT History and Physical Notes * HPI (History of Present Illness) Category Sub-Category Detail Notes Category Not es HPI Patient is here today for Pt her e to establish care, previously seen by Dr. Daniel. Pt states he has not seen PCP in a while . Pt here for Biometric screening, pt is fasting today Examination Category Sub-Category Detail Notes Category Not es General Examination HEENT: unremarkable Heart: RSR Lungs: clear to auscultatio n Extremities: no leg edema, thenar eminence muscle wasting noted on right palm General Appearance: NAD Skin: normal, no rash Neurologic Exam: Tinel's negative, Ph allyson's positive at right wrist Neck: supple, no lymphaden opathy Oral cavity: no lesions, mucosa m oist and WNL, no erythema Peripheral pulses: normal (2+) bilatera lly
--- OUTSIDE RECORDS SUMMARY | 2025-04-25 14:25 | XMS_ITS | Clinical Summary ---
Author Organization [facility] Address [address] [place] [address] Care Team Providers Care Clock Repairer Name Role Phone Delaney Mays PATRICIA Primary Care Provider [phone] Allergies No known active allergies Medications * This document contains information received from the source organization and may not represent a complete record from that organization. ARIPiprazole (ABILIFY) 2 MG tabletIndication s:MDD (major depressive disorder), recurrent episode, moderate Take 2 tablets by mouth Daily. 60 tablet 2 04/16/2024 Active temazepam (RESTORIL) 15 MG capsuleIndicatio ns:Insomnia, unspecified type Take 1 capsule by mouth At Night As Needed for Sleep. 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 Not on file 05/2023 Does Anyone Keep You from Co ntacting Others or Doint Things Outside the Home? Not on file 06/30/2023 Physical Sign of Abuse Present Not on file 1 Housing Stability Answer Date Recorded Current Living Arrangements Not on file 05/2023 Potentially Unsafe Housing Conditions Not on gemma e 06/30/2023 Family and Community Support Answer Cristian e Recorded Help with Day-to-Day Activities Not on file 06/30/2023 Lonely or Isolated Not on file 06/30/2023 Employment Answer Date Recorded Do you want help finding or keeping work or a ania b? Not on file 06/30/2023 Disabilities Answer Date Recorded Concentrating, Remembering, or Making Decisions Difficulty Not on file 06/30/2023 Doing Errands Independently Difficulty Not on fi le 06/30/2023 Education Answer Date Recorded Help with school or training? Not on file Preferred Language Not on file 06/30/2023 PHQ-2 Answer Date Recorded Retired PHQ-9: Brief Depression Severity Measure Score 21 02/06/2023 Sex and Gender Information Value Date Recorded Sex Assigned at Not on file Legal Sex Male 10:19 AM EDT Gender Identity Not on file Sexual Orientation Not on file Last Filed Vital Signs Vital Sign Reading Time Taken Comments Blood Pressure 121/85 07/17/2023 4:52 PM EDT Pulse 68 07/17/2023 4:52 PM EDT Temperature - - Respiratory Rate - - Oxygen Saturation - - Inhaled Oxygen Concentration - - Weight 83.9 kg (185 lb) 04/16/2024 2:20 PM EDT Height 180.3 cm (5' 11 ) 04/16/2024 2:20 PM EDT Body Mass Index 25.8 04/16/2024 2:20 PM EDT Plan of Treatment Health Maintenance Due Date Last Done Comments TDAP/TD VACCINES (2 - Tdap) 06/13/2013 06/13/2003 ANNUAL PHYSICAL 02/06/2023 HEPATITIS C SCREENING 02/06/2023 COVID-19 Vaccine ( - 2023-2 5 season) 2024 09/28/2021, 02/07/2021, 01/10/2021 INFLUENZA VACCINE 06/22/2025 Pneumococcal Vaccine 0-49 Aged Out No longer eligible based on patient's age to complete this topic Insurance [facility] PPO Care Teams Clock Repairer Relationship Specialty Start Date End Date Delaney Mays LCSW [address] [place] [address] PCP - General Behavioral Health 01/09/23
--- OUTSIDE RECORDS SUMMARY | 2025-04-25 14:25 | XMS_ITS | Patient Health Record ---
[facility] Address [address] [facility] [address] [place] [id number] Care Team Providers Care Remediation Consultant Name Role Phone Jluis Fernandes Primary Care Provider [phone] Allergies No Known Allergies Results Component Value Reference Range Notes P-Comprehensive Metabolic Pa shanika (CMP) Reviewed date:10/14/2024 11:13:01 AM Interpretation:Normal Performing Lab: Notes/Report: Test performed by [email or web address] [address] [place], [place] [address] [place] , [address], [place] [address] Erik Santillan MD, Critical Systems Technician CLIA: [id number] Sodium 140 135-145 mmol/L Potassium 4.7 3.5-5.3 [...] Interpretation:Normal Performing Lab: Notes/Report: Test performed by [email or web address] [address] [facility] , [address], [place] [address] Erik Santillan MD, Critical Systems Technician CLIA: [id number] Cholesterol 140 <200 mg/dL Triglycerides 117 <150 [...] di sc disease), cervical (M50.30) [facility] Referring Provider First Name Jluis Referring Provider Last Name Dena Referring Provider Speciality Family [facility] ctice Referred Provider Jamel Galdamez Referred Provider Specialty Pain Managem ent General Notes Jenna Dawson 2024 08:53:41 AM > faxed to [facility] Pain Management Referral Priority Routine Problems Problem Type SNOMED Code ICD Code Onset Dates Problem Status W/U Status Risk Notes Problem Cervical radiculopathy (03167633) Cervical radiculopathy (M54.12) Active confirmed Problem Cervical disc disorder (171670274) DDD (degenerative disc disease), cervical (M50.30) Active confirmed Vital Signs Heart Rate 83 /min 10/12/2024 Blood pressure diastolic 70 mm Hg 10/12/2024 Height 71 in 10/12/2024 Blood pressure systolic 120 mm Hg 10/12/2024 Weight 185 lbs 10/12/2024 BMI 25.80 kg/m2 10/12/2024 Encounters Encounter Location Date Provider Diagnosis [facility] [address] [facility] [address] [place] [id number] 10/12/2024 Jluis [place] Well adult exam Z00. 00 and Pain in right hand M79.641 [facility] [address] [facility] [address] [place] [id number] 10/20/2024 Jluis [place] Pain in right hand M79.641 ; Cervical radiculopathy M54.12 and Abnormal nerve conduction studies R94.130 [facility] [address] [place], [place] [id number] 11/15/2024 Jluis [place] [facility] [address] [facility] [address] [place], [place] [id number] 12/13/2024 Jluis [place] Cervical radiculopat hy M54.12 and DDD (degenerative [...] Coverage Start Date Coverage End Date [facility] [address] [place] [address] [id number] Masoud Venegas Self - patient is the insured Medical (General) History Medical History History ICD Code Post Traumatic Stress Disorder Surgical History Surgery Date(Month/Year) Hospitalization History Reason Date(Month/Year)
[2025-04-25 14:59] VITALS: BP 128/75; PULSE 74; RESP 14; O2SAT 99; BMI 25.1
--- NOTE | 2025-04-25 15:09 | EXP.PAIN.SOA ---
[facility] Disclaimer: The information contained in this section may have been updated after the patient was seen, as this information can be updated by other users. Medical History Attention deficit disorder (ADD) in adult Family History Other Unknown family medical history Social History Smoking Status: Never smoker second hand exposure: No alcohol intake: never substance use type: other details: they do have CBD gummies; the legal ones; it will help him focus counseling given: No current occupational status: other Travel in the last 8 weeks?: None adopted: No caregiver/support person: No foster care: No household members: spouse housing: house lives independently: Yes marital status: number of children: 2 number of grandchildren: 0 education level: high school service: No current occupation: [email or web address] Recent Travel: No sexually active: Yes caffeine: No physical activity: none working smoke detector in home: Yes fire extinguisher in home: Yes carbon monox detector in home: Yes firearms in home: No do you feel safe at home: Yes victim of physical abuse: No victim of emotional abuse: No victim of sexual abuse: No would you like helpful sources: No PM Subjective & Objective Subjective Subjective:: Patient is a pleasant 39-year-old male who presents today for 1 month follow-up. He rates his pain today a 2 out of 10. He does state that with the increased dosage of the pregabalin that he did find that it was much more beneficial and has really helped his overall pain.He denies any new falls or injuries. His Vipul has been reviewed and is appropriate. Review of Systems: General: No recent weight changes, no fever, no sleep disturbances Respiratory: No cough, no shortness of air, no recurring pulmonary infections Cardiovascular/peripheral vascular: No chest pain, no palpitations, no edema, no shortness of breath Gastrointestinal: No new onset incontinence, normal bowel movements reported Genitourinary: No new onset incontinence Musculoskeletal: Hand and feet numbness tingling Psychiatric: [Normal mood/affect] Neurological: [Denies weakness in extremities], [denies balance issues] Pain at rest (0-10 scale): 2 Objective Objective:: Physical Exam: General: Alert and oriented x3, no acute distress, pleasant and cooperative Lungs: Respirations even and unlabored, symmetrical chest expansion Eyes: PERRL Musculoskeletal: Flexion and extension of lumbar [spine] within normal limits Neurological: Speech clear, no gross sensory deficit Has patient had previous pain injection?: No Conservative treatment options previously tried: Home exercise plan Length of treatment: Longer than 12 weeks Meds Home Medications and Allergies Home Medications ?Medication ?Instructions ?Recorded ?Confirmed ?Type pregabalin 25 mg capsule 25 mg PO BID #28 caps 02/22/25 04/25/25 Rx diclofenac sodium 75 mg 75 mg PO BID #28 tabs 03/09/25 04/25/25 Rx tablet,delayed release pregabalin 50 mg capsule 50 mg PO BID #60 caps 03/23/25 04/25/25 Rx New Prescriptions to Start Prescriptions: Allergies Allergy/AdvReac Type Severity Reaction Status Date / Time No Known Allergies Allergy Verified 12/17/22 13:59 Assessment and Plan *Assessment and plan (1) Cervical radiculopathy: Status: Acute Category: Medical Code(s): M54.12 - Radiculopathy, cervical region Plan Will provide a 3-month supply of the pregabalin 50 mg twice daily. Patient will return to clinic in 3 months for reevaluation of symptoms and plan of care. Patient has been instructed to contact the clinic with any concerns before the next appointment. Dr. Galdamez has reviewed this note and agrees with this plan of care. This note was dictated using voice recognition software and make contain errors or omissions. All injections are used with Lidocaine, Bupivacaine and dexamethasone. Occasionally urine drug screen is needed to verify patient's compliance with our office pain contract. This is ordered based off specific treatments related to chronic pain with the potential to abuse certain medications.
== END 2025-04-25 23:59 | disposition home or self-care (01) ==
PROVIDERS: PCP Family Medicine; Visit Provider Nurse Practitioner Family
DX: M54.12 Radiculopathy, cervical region (principal); Z79.899 Other long term (current) drug therapy
CPT/HCPCS: 99212; G0463